=== PATIENT | male | born 1980 | race Caucasian/White ===

== ENCOUNTER 2020-11-14 00:35 | Emergency (ER) | payer BC ==
[2020-11-14] MEDS ORDERED: VIBRAMYCIN100 MG PO (04:37)
[2020-11-14] MEDS ORDERED: VENTOLIN HFA 66.7 GM INH (04:37)
== END 2020-11-14 04:45 | disposition home or self-care (01) ==
LOC: ER1 00:35
DX: U07.1 COVID-19 (principal); J18.9 Pneumonia, unspecified organism; Z87.442 Personal history of urinary calculi; Z88.8 Allergy status to other drugs, medicaments and biological substances
CPT/HCPCS: 71045; 87081; 87880; 99283; U0003

== ENCOUNTER 2020-11-18 02:51 | Emergency (ER) | payer BC ==
[~2020-11-18 02:51] MED LIST: VENTOLIN HFA 66.7 GM INH; VIBRAMYCIN100 MG PO
[2020-11-18 04:49] LABS: RED BLOOD COUNT 5.56 M/UL (4.20-5.50)
[2020-11-18 05:16] LABS: BUN/CREATININE RATIO 14 (0-10)
[2020-11-18] MEDS ORDERED: ZOFRAN4 MG PO (06:36)
[2020-11-18] MEDS ORDERED: DELSYM30 MG/5 ML PO (06:36)
[2020-11-18] MEDS ORDERED: DOXYCYCLINE HY100 M2 PO (06:36)
[2020-11-18] MEDS ORDERED: MEDROL DOSEPAK 24 MG PO (06:36)
== END 2020-11-18 06:58 | disposition home or self-care (01) ==
LOC: ER1 02:51
PROVIDERS: Physician Assistant
DX: U07.1 COVID-19 (principal); Z87.442 Personal history of urinary calculi
CPT/HCPCS: 71045; 80053; 82550; 82553; 83874; 83880; 84484; 85025; 85379; 85610; 85730; 93005; 99285